=== PATIENT | male | born 1955 | race Caucasian/White ===

== ENCOUNTER → 2020-05-13 | Day surgery (SDC) | payer OTHER ==
[~2020-05-13] MED LIST: CREON DR 6,0001 EACH PO; NOVOLOG VI100 UNIT/1 SC; PANTOPRAZOLE SO40 MG PO; PAROXETINE HCL40 MG PO; PHENOBARBITAL30 M1 PO; PROMETHAZINE HC25 M1 PO; TADALAFIL5 MG PO
== END | disposition home or self-care (01) ==
LOC: FAS 13:30
DX: H26.491 Other secondary cataract, right eye (principal)

== ENCOUNTER → 2020-06-10 | Day surgery (SDC) | payer OTHER | END | disposition home or self-care (01) | LOC: FAS 12:28 | DX: H26.493 Other secondary cataract, bilateral (principal); H43.813 Vitreous degeneration, bilateral; H02.836 Dermatochalasis of left eye, unspecified eyelid; H02.833 Dermatochalasis of right eye, unspecified eyelid; E10.36 Type 1 diabetes mellitus with diabetic cataract; F17.200 Nicotine dependence, unspecified, uncomplicated; Z20.822 Contact with and (suspected) exposure to COVID-19; Z98.49 Cataract extraction status, unspecified eye; Z94.89 Other transplanted organ and tissue status ==